=== PATIENT | male | born 1990 ===

== ENCOUNTER 2019-05-16 17:00 | Emergency (ER) | payer OTHER ==
[~2019-05-16] VITALS: Ht 175.3 cm; Wt 86.2 kg
[2019-05-16] MEDS ORDERED: ESCITALOPRA5 MG/5 ML (17:22)
[2019-05-16] MEDS ORDERED: CLONAZEPAM1 M1 (17:22)
[2019-05-16] MEDS ORDERED: CLONAZEPAM1 MG PO (19:16)
== END 2019-05-16 19:25 | disposition home or self-care (01) ==
LOC: ER 17:00
DX: R53.81 Other malaise (principal); F19.939 Other psychoactive substance use, unspecified with withdrawal, unspecified